=== PATIENT | female | born 1985 | race American Indian/Alaskan Native ===

== ENCOUNTER 2020-12-26 01:14 | Emergency (ER) | payer OTHER ==
[2020-12-26] MEDS ORDERED: SODIUM CHLORIDE 0.9% 1000 ML 1,000 ML IV ONE (01:50)
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
[2020-12-26 02:18] LABS: Basophils # (Auto) 0.1 K/mm3 (0.0-0.1); Basophils % (Auto) 0.6 % (0.0-1.8); Eosinophils % (Auto) 0.1 % (0.0-4.3); Hematocrit 35.1 % (30.3-42.9); Hemoglobin 11.4 gm/dl (10.1-14.3); Lymphocytes # (Auto) 2.6 K/mm3 (1.2-5.4); Lymphocytes % (Auto) 26.6 % (13.4-35.0); Mean Corpuscular HGB Conc 33 % (30-34); Mean Corpuscular Volume 73 fl (79-97); Monocytes # (Auto) 0.5 K/mm3 (0.0-0.8); Monocytes % (Auto) 4.8 % (0.0-7.3); Platelet Count 523 K/mm3 (140-440)
[2020-12-26 02:26] LABS: Red Cell Distribution Width 20.2 % (13.2-15.2)
[2020-12-26 02:37] LABS: Alanine Aminotransferase 17 units/L (7-56); BUN/Creatinine Ratio 11; Blood Urea Nitrogen 9 mg/dL (7-17); Calcium 8.6 mg/dL (8.4-10.2); Hemolysis Index 0
[2020-12-26] MEDS ORDERED: ONDANSETRON 4 MG/2 ML INJ IV ONE (03:31)
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
--- NOTE | 2020-12-26 04:03 | Cat Scan Report ---
CT CHEST, ABDOMEN, AND PELVIS IV CONTRAST INDICATION: Chest and abdominal pain following injury TECHNIQUE: Axial CT images were obtained through the chest, abdomen, and pelvis with IV contrast. All CT scans a t this location are performed using CT dose reduction for ALARA by means of automated exposure contro l. COMPARISON: None available. FINDINGS: HEART: Mildly enlarged. THORACIC AORTA: No significant abnormality. MEDIASTINUM and CHETNA: No significant abnormality. LUNGS: No acute air space or interstitial disease. PLEURA: No significant pleural effusion. No pneumothorax. ADDITIONAL CHEST FINDINGS: None. LIVER: No significant abnormality. GALLBLADDER: No significant abnormality. BILE DUCTS: No significant abnormality. PANCREAS: No significant abnormality. SPLEEN: No significant abnormality. ADRENALS: No significant abnormality. RIGHT KIDNEY and URETER: No significant abnormality. LEFT KIDNEY and URETER: No significant abnormality. STOMACH and SMALL BOWEL: No significant abnormality. COLON: No significant abnormality. APPENDIX: No significant abnormality. PERITONEUM: No free fluid. No free air. No fluid collection. LYMPH NODES: No significant adenopathy. AORTA and ARTERIES: No significant abnormality. IVC and VEINS: No significant abnormality. URINARY BLADDER: No significant abnormality. REPRODUCTIVE ORGANS: Mildly complex right ovarian cyst measuring about 2.5 cm in diameter.. ADDITIONAL FINDINGS: None. SKELETAL SYSTEM: No significant abnormality. IMPRESSION: No acute intrathoracic or intra-abdominal injury. Incidental findings as noted above. Signer Name: Dre Butcher MD Signed: 12/26/2020 3:58 AM Workstation Name: [id number]
[2020-12-26 05:34] VITALS: BP 108/63
== END 2020-12-26 05:05 ==
LOC: ED 01:14
DX: F10.920 Alcohol use, unspecified with intoxication, uncomplicated (principal); V89.2XXA Person injured in unspecified motor-vehicle accident, traffic, initial encounter; Y93.89 Activity, other specified; Y92.89 Other specified places as the place of occurrence of the external cause; Y99.8 Other external cause status
CPT/HCPCS: 36415; 70450; 71260; 72125; 74177; 80053; 84703; 85025; 96361; 96374; 99284; J2405; J7030; Q9967; 80320; G0480